=== PATIENT | female | born 1930 | race Caucasian/White ===

== ENCOUNTER 2016-12-24 16:59 | Outpatient (CLI) | payer MEDICARE, OTHER | END 2016-12-24 17:00 | disposition home or self-care (01) | LOC: MADLABBHPM 16:59 | PROVIDERS: ATTEND Family Medicine | DX: R30.0 Dysuria (principal) | CPT/HCPCS: 87086 ==

== ENCOUNTER 2017-05-17 18:42 | Outpatient (CLI) | payer MEDICARE, OTHER ==
[2017-05-17 19:10] LABS: Clarity Cloudy (Clear); Leukocyte Large (Negative); Nitrite Negative (Negative); pH, Urine 5.5 (5.0-9.0)
[2017-05-17 19:11] LABS: Bacteria/HPF 2+ HPF (None Seen); Bilirubin Negative (Negative); Blood, Urine Trace (Negative); Glucose, Urine (Dipstick) Negative (Negative); Icto Negative (Negative); Protein, Urine (Dipstick) 30 mg/dL (Neg-Trace); RBC/HPF 0-3 HPF (0-3); Urobilinogen 0.2 mg/dL (0.2-1.0)
== END 2017-05-17 18:43 | disposition home or self-care (01) ==
LOC: MADLAB 18:42
PROVIDERS: ATTEND Family Medicine
DX: G47.00 Insomnia, unspecified (principal)
CPT/HCPCS: 81001; 87086

== ENCOUNTER 2017-05-29 13:57 | Emergency (ER) | payer MEDICARE, OTHER ==
[2017-05-29 14:45] LABS: Anion Gap 13 mmol/L (10-20); BUN (Urea Nitrogen) 24 mg/dL (9.8-20.1); Calc. Creatinine Clearance 0 mL/min (70-130); Calcium 9.4 mg/dL (7.8-10.44); Carbon Dioxide 27 mmol/L (23-31); Chloride 101 mmol/L (98-107); Estimated GFR-MDRD 54; Glucose 124 mg/dL (83-110); Magnesium 2.4 mg/dL (1.6-2.6); Potassium 4.8 mmol/L (3.5-5.1); Sodium 136 mmol/L (136-145)
[2017-05-29 14:51] LABS: CKMB 1.7 ng/mL (0-6.6); Troponin I Less than 0.010 ng/mL (< 0.028)
[2017-05-29 14:53] LABS: Eosinophils 2 % (0-10); Hemoglobin 11.7 g/dL (12.0-16.0); Lymphocytes 84 % (21-51); MDiff Complete? YES; Mean Corpuscular HGB CONC 31.1 g/dL (32.0-36.0); Mean Corpuscular Hemoglobin 27.6 pg (27.0-31.0); Mean Corpuscular Volume 88.9 fl (81.0-99.0); Mean Platelet Volume 7.8 fL (7.4-10.4); Monocytes 2 % (0-10); Neutrophil 12 % (42-75); PLT Morphology Comment Appears Adequate; Platelet Count 211 thou/uL (130-400); RBC Distribution Width 14.6 % (11.5-14.5); Red Blood Cell (RBC) Count 4.23 mill/uL (4.20-5.40); White Blood Cell (WBC) Count 32.5 thou/uL (4.8-10.8)
== END 2017-05-29 15:35 ==
LOC: MADERS 13:57
DX: Z00.00 Encounter for general adult medical examination without abnormal findings (principal); J44.9 Chronic obstructive pulmonary disease, unspecified; F41.9 Anxiety disorder, unspecified; Z79.899 Other long term (current) drug therapy
CPT/HCPCS: 36415; 80048; 82553; 83735; 84484; 85025; 93005

== ENCOUNTER 2017-06-20 08:06 | Emergency (ER) | payer MEDICARE, OTHER ==
[~2017-06-20 08:06] MED LIST: Sodium Chloride 0.9% 1,000 ML BAG ONE
[2017-06-20] MEDS ORDERED: Piperacillin/Tazobactam 3.375 GM VIAL ONE (08:41)
[2017-06-20 08:45] LABS: ALT (SGPT) 24 U/L (8-55); AST (SGOT) 14 U/L (5-34); Albumin 3.8 g/dL (3.4-4.8); Alkaline Phosphatase 73 U/L (40-150); Anion Gap 15 mmol/L (10-20); BUN (Urea Nitrogen) 20 mg/dL (9.8-20.1); Bilirubin, Total 0.6 mg/dL (0.2-1.2); Calc. Creatinine Clearance 0 mL/min (70-130); Calcium 8.7 mg/dL (7.8-10.44); Carbon Dioxide 33 mmol/L (23-31); Chloride 96 mmol/L (98-107); Estimated GFR-MDRD 77; Globulin 2.6 g/dL (2.4-3.5); Glucose 152 mg/dL (83-110); Potassium 4.7 mmol/L (3.5-5.1); Protein, Total 6.4 g/dL (6.0-8.3); Sodium 139 mmol/L (136-145)
[2017-06-20 09:05] LABS: Hemoglobin 11.4 g/dL (12.0-16.0); Lymphocytes 74 % (21-51); MDiff Complete? YES; Mean Corpuscular HGB CONC 30.9 g/dL (32.0-36.0); Mean Corpuscular Volume 90.5 fl (81.0-99.0); Mean Platelet Volume 7.1 fL (7.4-10.4); Monocytes 1 % (0-10); Neutrophil 25 % (42-75); PLT Morphology Comment Appears Adequate; Platelet Count 226 thou/uL (130-400); RBC Distribution Width 14.9 % (11.5-14.5); Red Blood Cell (RBC) Count 4.09 mill/uL (4.20-5.40)
[2017-06-20 09:08] LABS: Manual Diff?? YES; White Blood Cell (WBC) Count 62.2 thou/uL (4.8-10.8)
[2017-06-20 09:09] LABS: Differential Comment MANY SMUDGE CELLS NO
[2017-06-20 09:28] LABS: Clarity Clear (Clear); Leukocyte Negative (Negative); Nitrite Negative (Negative); Specific Gravity, Urine 1.015 (1.005-1.030)
[2017-06-20 09:29] LABS: Bilirubin Negative (Negative); Blood, Urine Negative (Negative); Glucose, Urine (Dipstick) Negative (Negative); Protein, Urine (Dipstick) Negative (Neg-Trace); Urobilinogen 0.2 mg/dL (0.2-1.0)
[2017-06-20] MEDS ORDERED: Iopamidol 370 76% 125 ML VIAL FS ONE (10:49)
--- NOTE | 2017-06-20 10:56 | CT ---
CTA OF THE THORAX UTILIZING IV CONTRAST WITH PE PROTOCOL AND 3D REFORMATTED IMAGING INDICATIONS: An 86-year-old female with COPD, shortness of breath, and an elevated D-dimer. COMPARISON: Prior exam dated 06/29/2015. TECHNIQUE: Multiple CTA images were obtained of the thorax utilizing IV contrast, 3D reformatted images, and PE protocol. FINDINGS: There is moderate right and small left pleural effusion. There is bibasilar atelectasis. There is subsegmental atelectasis within the lingula. There is a patchy area of air space opacity seen withi n the anterior right upper lobe, which is suspicious for either edema or pneumonia. There are mildl y prominent right hilar lymph nodes, which have developed since the prior exam. There are pre-vascu lar lymph nodes, also mildly enlarged, which may be reactive in nature. There are coronary artery a nd thoracic aortic calcifications. There are shotty appearing lymph nodes within the axillary regio n bilaterally, which are stable. The visualized upper abdomen is unremarkable. The T6 compression abnormality is stable to a comparison radiograph dated 05/22/2017. 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 IMPRESSION: 1. No central or segmental pulmonary embolus demonstrated. 2. Patchy air space opacity in the right upper lobe, suspicious for pneumonitis. Recommend correla tion for any symptoms or signs of early pneumonia. 3. Bilateral pleural effusion and bibasilar atelectasis. 4. Stable T6 compression fracture. POS: [facility]
--- NOTE | 2017-06-20 11:20 | CT ---
NONCONTRAST ENHANCED CT IMAGES OF BRAIN: HISTORY: Altered mental status, 86-year-old female. FINDINGS: Noncontrast enhanced CT images of the brain demonstrate cortical atrophy and deep white matter ische mary grace changes. 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 Previously noted small left occipital/parietal hematoma has resolved. No evidence of acute intracra nial masses or hemorrhages are seen. IMPRESSION: Cortical atrophy and deep white matter ischemic changes. POS: [facility]
[2017-06-20] MEDS ORDERED: Sodium Chloride 0.9% 100 ML BAG ONE (13:19)
== END 2017-06-20 11:20 | disposition short-term general hospital (02) ==
LOC: MADERS 08:06
DX: J18.9 Pneumonia, unspecified organism (principal); J91.8 Pleural effusion in other conditions classified elsewhere; R09.02 Hypoxemia; D72.829 Elevated white blood cell count, unspecified; J44.9 Chronic obstructive pulmonary disease, unspecified; F41.9 Anxiety disorder, unspecified
CPT/HCPCS: 36415; 70450; 71275; 80053; 81003; 83605; 85025; 85060; 85379; 87040; 94760; 96361; 96365; J2543; J7050